=== PATIENT | female | born 1965 | race Caucasian/White ===

== ENCOUNTER → 2020-02-21 11:50 | Outpatient (CLI) | payer OTHER, SELFPAY ==
--- NOTE | 2020-02-21 | DI.RAD.S_ITS ---
PROCEDURE: XR SHOULDER RT MIN 2V INDICATIONS: RIGHT SHOULDER PAIN TECHNIQUE: 3 views of the shoulder were acquired. COMPARISON: None. FINDINGS: Bones: No fractures or dislocations. No suspicious bony lesions. Visualized ribs appear intact. Mild lateral downsloping appearance of the acromion. Soft tissues: No suspicious soft tissue calcifications. IMPRESSION: No fracture or acute abnormality If the patient's pain or other symptoms persist, consider further evaluation with MRI Dictated by: Mehul Valentin M.D. on 02/21/2020 at 14:40 Approved by: Mehul Valentin M.D. on 02/21/2020 at 14:47
== END ==
PROVIDERS: PCP Family Medicine; Referring Provider Family Medicine; Visit Provider Family Medicine
DX: M25.511 Pain in right shoulder (principal)
CPT/HCPCS: 73030

== ENCOUNTER → 2020-05-13 09:07 | Outpatient (CLI) | payer OTHER, SELFPAY ==
[2020-05-13 10:37] LABS: Alanine Aminotransferase 32 IU/L (<35); Albumin 4.6 g/dL (3.5-5.0); Albumin Globulin Ratio 1.8 (1.0-2.8); Alkaline Phosphatase 53 U/L (38-126); Aspartate Aminotransferase 25 IU/L (14-36); BUN Creatinine Ratio 27.8 (6-22); Bilirubin Total 0.7 mg/dL (0.2-1.3); Blood Urea Nitrogen 22 mg/dL (7-17); Carbon Dioxide 27 mmol/L (22-32); Chloride 104 mmol/L (98-107); Estimated Glomerular Filt Rate > 60.0 mL/min (>60); Globulin 2.6 g/dL (1.7-4.1); Glucose 94 mg/dL (70-100); HEMOLYSIS < 15 (0-50); Potassium 4.3 mmol/L (3.4-5.1); Sodium 137 mmol/L (137-145); Total Protein 7.2 g/dL (6.3-8.2)
[2020-05-13 10:54] LABS: Free T4, Direct Thyroxine 0.98 ng/dL (0.78-2.19)
[2020-05-13 11:08] LABS: Thyroid Stimulating Hormone 1.53 uIU/mL (0.47-4.68)
[2020-05-13 11:10] LABS: Testosterone 35.1 ng/dL (5.71-77.0)
[2020-05-17 02:36] LABS: Estrogen 53 pg/mL (.)
== END ==
PROVIDERS: PCP Family Medicine; Referring Provider Family Medicine; Visit Provider Family Medicine
DX: Z00.00 Encounter for general adult medical examination without abnormal findings (principal)
CPT/HCPCS: 36415; 80053; 82672; 84403; 84439; 84443

== ENCOUNTER 2020-06-30 08:18 | Emergency (ER) | payer OTHER, SELFPAY ==
--- NOTE | 2020-06-30 08:27 | DI.RAD.S_ITS ---
PROCEDURE: XR CHEST 1V INDICATIONS: chest pain TECHNIQUE: One view of the chest was acquired. COMPARISON: [facility], CR, XR SHOULDER RT MIN 2V, 02/21/2020, 11:53. FINDINGS: Surgical changes and devices: None. Lungs and pleura: Lungs are clear. No pleural effusions or pneumothorax. Mediastinum: Mediastinal contours appear normal. Heart size is normal. Bones and chest wall: No suspicious bony lesions. Overlying soft tissues appear unremarkable. IMPRESSION: No acute cardiopulmonary abnormality. Dictated by: Manuel Gaona M.D. on 06/30/2020 at 7:48 Approved by: Manuel Gaona M.D. on 06/30/2020 at 7:49
[2020-06-30 08:30] VITALS: BP 171/83; PULSE 86; RESP 14; TEMP 36.6; O2SAT 100; BMI 27.0
--- NOTE | 2020-06-30 08:32 | ED.CHESTPAIN ---
HPI - Chest Pain General Chief Complaint: Chest Pain Stated Complaint: Chest pain, started about 3 days ago Time Seen by Provider: 06/30/20 08:22 Source: patient Mode of arrival: Ambulatory Limitations: no limitations History of Present Illness HPI narrative: Patient is a 55-year-old female with history of hyperlipidemia who presents with the centralized chest discomfort ongoing for the last 3 days. She has states that she notices it more when she is resting trying to lay down and go to sleep. She says if she is keeping busy she does not notice it it does not matter if she is exerting herself or resting she feels like it is fairly constant and nonradiating. She denies any infectious symptoms Duration: constant Onset: during rest and during exertion Pain location: substernal Severity: mild Quality: aching Pain radiation: none Relieving factors: nothing Exacerbating factors: nothing Related Data Home Medications Medication Instructions Recorded Confirmed atorvastatin 20 mg tablet 20 mg PO tab 02/21/20 05/24/20 bupropion HCl 150 mg 24 hr tablet, mg PO 02/21/20 05/24/20 extended release Previous Rx's Medication Instructions Recorded piroxicam 20 mg capsule See Rx Instructions .ROUTE 05/28/20 .COMPLEX #90 cap Allergies Allergy/AdvReac Type Severity Reaction Status Date / Time Iodinated Contrast Media AdvReac Mild passed Verified 06/30/20 08:35 out Review of Systems Review of Systems Narrative: GENERAL: Denies chills, fatigue, malaise, fever, sweats, travel HEENT: Denies sinus pain, ear pain, sore throat, difficulty swallowing, neck pain RESPIRATORY: Denies dyspnea, cough, wheezing, hemoptysis, sputum. CARDIOVASCULAR: See HPI GASTROINTESTINAL: Denies nausea, vomiting, abdominal pain, diarrhea, constipation, melena. : Denies dysuria, frequency, incontinence, hematuria, urinary retention, flank pain. MUSCULOSKELETAL: Denies weakness, joint pain, or bony pain SKIN: No rash, no erythema, no pruritus NEUROLOGIC: Denies weakness, dizziness, headache, numbness, change in speech, confusion PSYCHIATRIC: No concerning psychosocial issues. 12 point review of systems is negative except for those stated above and HPI Patient History Medical History Adhesive capsulitis of right shoulder Otalgia, right ear Seborrheic keratosis Well adult exam Surgical History Anesthesia H/O breast augmentation (~2009) H/O breast augmentation (~1991) History of section (~08/1989) Family History Father History of heart disease Grandfather History of emphysema Grandmother Cancer Grandmother History of heart disease Social History Smoking Status: Never smoker alcohol intake: current (1 drink per night ) substance use type: does not use Smoking Status: Never smoker Exam Initial Vital Signs Initial Vital Signs: Vital Signs Temperature 97.8 F 06/30/20 08:30 Pulse Rate 86 06/30/20 08:30 Respiratory Rate 14 06/30/20 08:30 Blood Pressure 171/83 H 06/30/20 08:30 Pulse Oximetry 100 06/30/20 08:30 GENERAL: Well-appearing, well-nourished and in no acute distress. HEENT: Head atraumatic,EOMI, pupils reactive, face symmetric, moist mucous membranes CARDIOVASCULAR: Regular rate and rhythm without murmurs, rubs or gallops. RESPIRATORY: Breath sounds equal bilaterally, no wheezes rales or rhonchi. ABDOMEN: Soft, nontender. Normoactive bowel sounds all 4 quadrants. No guarding or rebound. EXTREMITIES: Normal range of motion, no clubbing or edema. Neurovascularly intact NEUROLOGICAL: Alert and oriented x4.Normal gait and speech. Cranial nerves II through XII grossly intact. SKIN: Warm, dry, no laceration, no petechiae, no rashes or lesions. Scores HEART Score Heart Score history: Slightly Suspicious Heart Score EKG: Normal Heart Score Age: 45-64 years old Heart Score risk factors: 1-2 risk factors Heart Score troponin: < or = to normal limit Heart Score Total: 2 Course Orders Ordered: ED Orders 06/30/20 08:27 XR chest 1V Stat EKG-12 Lead Stat 06/30/20 08:47 Complete Blood Count AUTO DIFF Stat Comprehensive Metabolic Panel Stat Lipase Stat Partial Thromboplastin Time Stat Prothrombin Time INR Stat Troponin & CK Cardiac Panel Stat Discontinued Medications Aspirin (Aspirin 81 Mg Chew Tab) 324 mg PO NOW ONE Stop: 06/30/20 08:28 Last Admin: 06/30/20 08:35 Dose: 324 mg Documented by: MARKO Pantoprazole Sodium (Pantoprazole 40 Mg Vial) 40 mg IV NOW ONE Stop: 06/30/20 08:52 Last Admin: 06/30/20 08:57 Dose: 40 mg Documented by: MARKO Vital Signs Vital signs: Vital Signs - 8 hr 06/30/20 08:30 06/30/20 10:44 Temperature 97.8 F Pulse Rate 86 78 Respiratory Rate 14 15 Blood Pressure 171/83 H 171/83 H Pulse Oximetry 100 98 MDM - Chest Pain Lab Data Attestation: I reviewed the patient's lab results. Result diagrams: 06/30/20 08:47 06/30/20 08:47 Labs: Lab Results 06/30/20 06/30/20 06/30/20 Range/Units 08:47 08:47 08:47 WBC 4.9 (4.5-11.0) X10^3/uL RBC 4.67 (4.0-5.2) X10^6/uL Hgb 14.2 (12.0-16.0) g/dL Hct 42.3 (36-46) % MCV 90.5 (80-100) fL MCH 30.4 (26-34) PG MCHC 33.6 (30-36) % RDW 13.3 (11.6-14.8) % Plt Count 281 (150-400) X10^3/uL Neut % (Auto) 58.9 (50-75) % Lymph % (Auto) 29.5 (25-40) % Edmonson % (Auto) 8.4 (3-14) % Eos % (Auto) 2.0 (2-4) % Baso % (Auto) 1.2 (0-2) % Neut # (Auto) 2900 (4199-8790) /uL Lymph # (Auto) 1400 (2003-0438) /uL Edmonson # (Auto) 400 (0-900) /uL Eos # (Auto) 100 (0-450) /uL Baso # (Auto) 100 (0-100) /uL PT 11.5 (10.1-12.7) SECONDS INR 1.0 (0.9-1.3) APTT 31 (26.4-36.2) SECONDS Sodium 137 (137-145) mmol/L Potassium 4.0 (3.4-5.1) mmol/L Chloride 105 (98-107) mmol/L Carbon Dioxide 29 (22-32) mmol/L BUN 16 (7-17) mg/dL Creatinine 0.84 (0.52-1.04) mg/dL Estimated GFR > 60.0 (>60) mL/min BUN/Creatinine Ratio 19.0 (6-22) Glucose 99 (70-100) mg/dL Calcium 9.3 (8.4-10.2) mg/dL Total Bilirubin 0.6 (0.2-1.3) mg/dL AST 29 (14-36) IU/L ALT 31 (<35) IU/L Alkaline Phosphatase 55 (38-126) U/L Total Creatine Kinase 69 (30-135) U/L CK-MB (CK-2) TNP CK-MB (CK-2) Rel Index TNP Troponin I < 0.012 (0.01-0.034) ng/mL Total Protein 7.2 (6.3-8.2) g/dL Albumin 4.3 (3.5-5.0) g/dL Globulin 2.9 (1.7-4.1) g/dL Albumin/Globulin Ratio 1.5 (1.0-2.8) Lipase 75 (23-300) U/L Imaging Data Chest x-ray: Radiologist's Impression: PROCEDURE: XR CHEST 1V INDICATIONS: chest pain TECHNIQUE: One view of the chest was acquired. COMPARISON: [facility], CR, XR SHOULDER RT MIN 2V, 02/21/2020, 11:53. FINDINGS: Surgical changes and devices: None. Lungs and pleura: Lungs are clear. No pleural effusions or pneumothorax. Mediastinum: Mediastinal contours appear normal. Heart size is normal. Bones and chest wall: No suspicious bony lesions. Overlying soft tissues appear unremarkable. IMPRESSION: No acute cardiopulmonary abnormality. Dictated by: Manuel Gaona M.D. on 06/30/2020 at 7:48 Approved by: Manuel Gaona M.D. on 06/30/2020 at 7:49 ECG Data Attestation: I personally reviewed and interpreted this ECG as follows: Interpretation: Normal sinus rhythm rate 62 p.r. interval 168 QRS [address] changes or T-wave inversions MDM Narrative Medical decision making narrative: Patient is overall feeling much better. She has had 3 days of chest discomfort low heart risk score. Based on her history and how she does describing it I have low suspicion for cardiac cause. At this time I recommend outpatient follow-up EKG troponin blood work all overall reassuring Discharge Plan Departure Patient Disposition: Home Clinical Impression: Atypical chest pain Instructions: DI for Atypical Chest Pain Activity Restrictions/Additional Instructions: *You have been diagnosed with atypical chest pain *What to do: At this time blood work and EKG are reassuring. However you still may require a cardiac stress test or other further her testing with her primary care provider *Continue to take medications as directed *Follow up with your primary care provider in 2-3 days *Return to ER if you should have increasing or worsening chest discomfort, shortness of breath or any new, worsening or concerning symptoms Prescriptions: No Action piroxicam 20 mg capsule See Rx Instructions .ROUTE .COMPLEX Qty: 90 RF: 1 atorvastatin 20 mg tablet 20 mg PO RF: 0 bupropion HCl 150 mg tablet extended release 24 hr PO RF: 0 Referrals: Raji Gordillo, [Primary Care Provider] -
[2020-06-30] MEDS: ASPIRIN 81 MG CHEW TAB 324 MG PO (08:35)
[2020-06-30 08:56] LABS: Add Manual Diff / Slide Review NO; Basophils Absolute Auto 100 /uL (0-100); Basophils Percent Auto 1.2 % (0-2); Eosinophils Absolute Auto 100 /uL (0-450); Hematocrit 42.3 % (36-46); Hemoglobin 14.2 g/dL (12.0-16.0); Lymphocytes Absolute Auto 1400 /uL (1100-4500); Lymphocytes Percent Auto 29.5 % (25-40); Mean Corpuscular HGB Conc 33.6 % (30-36); Mean Corpuscular Hemoglobin 30.4 PG (26-34); Mean Corpuscular Volume 90.5 fL (80-100); Monocytes Absolute Auto 400 /uL (0-900); Monocytes Percent Auto 8.4 % (3-14); Neutrophils Absolute Auto 2900 /uL (1500-7000); Neutrophils Percent Auto 58.9 % (50-75); Platelet Count 281 X10^3/uL (150-400); Red Blood Cell Count 4.67 X10^6/uL (4.0-5.2); Red Cell Distribution Width 13.3 % (11.6-14.8); White Blood Cell Count 4.9 X10^3/uL (4.5-11.0)
[2020-06-30] MEDS: PANTOPRAZOLE 40 MG VIAL IV (08:57)
[2020-06-30 09:09] LABS: Prothrombin Time 11.5 SECONDS (10.1-12.7)
[2020-06-30 09:12] LABS: PTT Partial Thromboplastin Tim 31 SECONDS (26.4-36.2)
[2020-06-30 09:14] LABS: Alanine Aminotransferase 31 IU/L (<35); Albumin 4.3 g/dL (3.5-5.0); Albumin Globulin Ratio 1.5 (1.0-2.8); Alkaline Phosphatase 55 U/L (38-126); Aspartate Aminotransferase 29 IU/L (14-36); Bilirubin Total 0.6 mg/dL (0.2-1.3); Blood Urea Nitrogen 16 mg/dL (7-17); Calcium 9.3 mg/dL (8.4-10.2); Carbon Dioxide 29 mmol/L (22-32); Chloride 105 mmol/L (98-107); Creatine Kinase 69 U/L (30-135); Estimated Glomerular Filt Rate > 60.0 mL/min (>60); Globulin 2.9 g/dL (1.7-4.1); Glucose 99 mg/dL (70-100); HEMOLYSIS < 15 (0-50); Lipase 75 U/L (23-300); Sodium 137 mmol/L (137-145); Total Protein 7.2 g/dL (6.3-8.2)
[2020-06-30 09:26] LABS: Troponin I < 0.012 ng/mL (0.01-0.034)
[2020-06-30 10:44] VITALS: BP 171/83; PULSE 78; RESP 15; O2SAT 98
== END 2020-06-30 10:45 | disposition home or self-care (01) ==
PROVIDERS: Emergency Provider Emergency Medicine; PCP Family Medicine
DX: R07.89 Other chest pain (principal); E78.5 Hyperlipidemia, unspecified
CPT/HCPCS: 36415; 71045; 80053; 82550; 83690; 84484; 85025; 85610; 85730; 93005; 96374; 99281; 99284; C9113

== ENCOUNTER → 2020-10-09 10:09 | Outpatient (CLI) | payer OTHER, SELFPAY ==
[2020-10-09] MEDS: COVID-19 VACC #1, MRNA(MOD) 100 MCG/0.5 ML VIAL IM (10:20)
== END ==
PROVIDERS: PCP Family Medicine; Visit Provider Internal Medicine
DX: Z23 Encounter for immunization (principal)
CPT/HCPCS: 0011A; 91301

== ENCOUNTER → 2020-11-14 10:01 | Outpatient (CLI) | payer OTHER, SELFPAY ==
[2020-11-14] MEDS: COVID-19 VACC #2, MRNA(MOD) 100 MCG/0.5 ML VIAL IM (10:11)
== END ==
PROVIDERS: PCP Family Medicine; Visit Provider Internal Medicine
DX: Z23 Encounter for immunization (principal)
CPT/HCPCS: 0012A; 91301

== ENCOUNTER → 2020-12-04 07:16 | Outpatient (CLI) | payer OTHER, SELFPAY ==
[2020-12-04 09:11] LABS: Alanine Aminotransferase 21 IU/L (<35); Albumin 4.1 g/dL (3.5-5.0); Albumin Globulin Ratio 1.8 (1.0-2.8); Alkaline Phosphatase 44 U/L (38-126); Aspartate Aminotransferase 27 IU/L (14-36); BUN Creatinine Ratio 18.9 (6-22); Bilirubin Total 0.5 mg/dL (0.2-1.3); Blood Urea Nitrogen 18 mg/dL (7-17); Calcium 9.2 mg/dL (8.4-10.2); Carbon Dioxide 27 mmol/L (22-32); Chloride 106 mmol/L (98-107); Cholesterol 156 mg/dL (140-199); Estimated Glomerular Filt Rate > 60.0 mL/min (>60); Globulin 2.3 g/dL (1.7-4.1); Glucose 89 mg/dL (70-100); HDL Cholesterol 70 mg/dL (40-60); HEMOLYSIS < 15 (0-50); LDL Cholesterol Calculated 76 mg/dL (<100); Sodium 139 mmol/L (137-145); Total Protein 6.4 g/dL (6.3-8.2); Triglycerides 52 mg/dL (35-150)
== END ==
PROVIDERS: PCP Family Medicine; Referring Provider Family Medicine; Visit Provider Family Medicine
DX: Z13.220 Encounter for screening for lipoid disorders (principal); Z13.228 Encounter for screening for other metabolic disorders
CPT/HCPCS: 36415; 80053; 80061

== ENCOUNTER → 2020-12-30 09:58 | Outpatient (CLI) | payer OTHER, SELFPAY ==
--- NOTE | 2020-12-30 | DI.MG.S_ITS ---
BILATERAL DIGITAL SCREENING MAMMOGRAM 3D/2D WITH CAD WITH AUGMENTATION: 12/30/2020 CLINICAL: Routine screening. Comparison is made to exams dated: 07/24/2019 mammogram, 08/22/2018 mammogram, and 06/29/2017 mammogram - outside location. The tissue of both breasts is heterogeneously dense. This may lower the sensitivity of mammography. Current study was also evaluated with a Computer Aided Detection (CAD) system. Bilateral breast implants are stable. No significant masses, calcifications, or other findings are seen in either breast. There has been no significant interval change. IMPRESSION: NEGATIVE There is no mammographic evidence of malignancy. A 1 year screening mammogram is recommended. This exam was interpreted at Station ID: [id number]. NOTE: For mammograms, a report in lay terms will be sent to the patient. Approximately 15% of breast malignancies will not be visualized mammographically. In the management of a palpable breast mass, a negative mammogram must not discourage biopsy of a clinically suspicious lesion. Electronically Signed By: Jesus mi/saranya:12/30/2020 10:39:47 letter sent: Normal Exam ACR BI-RADS Category 1: Negative 3341F
== END ==
PROVIDERS: PCP Family Medicine; Referring Provider Family Medicine; Visit Provider Family Medicine
DX: Z12.31 Encounter for screening mammogram for malignant neoplasm of breast (principal)
CPT/HCPCS: 77063; 77067

== ENCOUNTER → 2021-07-03 07:43 | Outpatient (CLI) | payer OTHER, SELFPAY ==
[2021-07-03 09:48] LABS: Alanine Aminotransferase 24 IU/L (<35); Albumin 4.4 g/dL (3.5-5.0); Albumin Globulin Ratio 1.7 (1.0-2.8); Alkaline Phosphatase 44 U/L (38-126); Aspartate Aminotransferase 27 IU/L (14-36); BUN Creatinine Ratio 16.9 (6-22); Bilirubin Total 0.5 mg/dL (0.2-1.3); Blood Urea Nitrogen 15 mg/dL (7-17); Calcium 8.9 mg/dL (8.4-10.2); Carbon Dioxide 30 mmol/L (22-32); Chloride 106 mmol/L (98-107); Estimated Glomerular Filt Rate > 60.0 mL/min (>60); Globulin 2.6 g/dL (1.7-4.1); Glucose 89 mg/dL (70-100); HEMOLYSIS < 15 (0-50); Potassium 3.9 mmol/L (3.4-5.1); Sodium 138 mmol/L (137-145)
[2021-07-03 10:19] LABS: TSH w/ Reflex to FT4 1.98 uIU/mL (0.47-4.68)
== END ==
PROVIDERS: PCP Family Medicine; Referring Provider Family Medicine; Visit Provider Family Medicine
DX: Z00.00 Encounter for general adult medical examination without abnormal findings (principal)
CPT/HCPCS: 36415; 80053; 84443

== ENCOUNTER → 2021-12-02 11:07 | Outpatient (CLI) | payer OTHER, SELFPAY ==
--- NOTE | 2021-12-02 | DI.RAD.S_ITS ---
PROCEDURE: XR LUMBAR SPINE 2-3V INDICATIONS: LOW BACK FELICIA TECHNIQUE: 3 views of the lumbar spine were acquired. COMPARISON: None. FINDINGS: Bones: 5 [id number] vertebrae are present. There is trace retrolisthesis of L2 on L3, L5 on S1 as well as grade 1 retrolisthesis of L3 on L4 measuring 5-6 mm. Mild foraminal narrowing is noted at L5-S1. No vertebral body compression fractures. No suspicious bony lesions. Soft tissues: Overlying bowel gas pattern is normal. No suspicious soft tissue calcifications. IMPRESSION: Degenerative changes most notable at L5-S1. Dictated by: Miranda Vogt M.D. on 12/02/2021 at 15:25 Approved by: Miranda Vogt M.D. on 12/02/2021 at 15:32
== END ==
PROVIDERS: PCP Family Medicine; Referring Provider Chiropractor; Visit Provider Chiropractor
DX: M99.03 Segmental and somatic dysfunction of lumbar region (principal); M54.51 Vertebrogenic low back pain
CPT/HCPCS: 72100

== ENCOUNTER → 2022-01-01 08:13 | Outpatient (CLI) | payer OTHER, SELFPAY ==
--- NOTE | 2022-01-01 | DI.MG.S_ITS ---
BILATERAL DIGITAL SCREENING MAMMOGRAM 3D/2D WITH CAD WITH AUGMENTATION: 01/01/2022 CLINICAL: Routine screening. Comparison is made to exams dated: 12/30/2020 mammogram - [facility], 07/24/2019 mammogram, and 08/22/2018 mammogram - outside location. The tissue of both breasts is heterogeneously dense. This may lower the sensitivity of mammography. Current study was also evaluated with a Computer Aided Detection (CAD) system. Bilateral breast implants are stable. No significant masses, calcifications, or other findings are seen in either breast. There has been no significant interval change. IMPRESSION: NEGATIVE There is no mammographic evidence of malignancy. A 1 year screening mammogram is recommended. This exam was interpreted at Station ID: [id number]. NOTE: For mammograms, a report in lay terms will be sent to the patient. Approximately 15% of breast malignancies will not be visualized mammographically. In the management of a palpable breast mass, a negative mammogram must not discourage biopsy of a clinically suspicious lesion. Electronically Signed By: Eric hemphill/saranya:01/01/2022 11:00:28 letter sent: Normal Exam ACR BI-RADS Category 1: Negative 3341F
== END ==
PROVIDERS: PCP Family Medicine; Referring Provider Family Medicine; Visit Provider Family Medicine
DX: Z12.31 Encounter for screening mammogram for malignant neoplasm of breast (principal)
CPT/HCPCS: 77063; 77067

== ENCOUNTER → 2022-03-04 12:07 | Outpatient (CLI) | payer OTHER, SELFPAY ==
--- NOTE | 2022-03-04 12:09 | DI.US.S_ITS ---
PROCEDURE: US PELVIC COMPLETE INDICATIONS: PMB TECHNIQUE: Real-time scanning was performed of the pelvic organs, with image documentation. Additional endovaginal scanning was necessary due to incomplete visualization of the adnexal and endometrial structures by transabdominal scanning. COMPARISON: None. FINDINGS: Uterus: The uterus is anteverted measuring 9.8 x 5.2 x 7.8 centimeters. The endometrium is thickened measuring 16 millimeters. Multiple fibroids, the largest in the right intramural region measuring up to 3.9 centimeters. No submucosal lesion identified. Cervix is within normal limits. Ovaries: Right ovary is not well seen. Left ovary measures 2.5 x 1.3 x 0.8 centimeters. Other: No pathologic free abdominal or pelvic fluid. IMPRESSION: Endometrial thickening, sampling is recommended in the setting of postmenopausal bleeding. Multiple fibroids. The largest measures up to 3.9 centimeters in the right intramural region. We strive to produce accurate, complete, and clear reports of imaging services. To assist us in improving patient care, this report was composed using standard report templates and voice recognition software. Therefore, it may contain abnormal punctuation, insertions and/or omissions. Occasional wrong-word or sound-alike substitutions may occur. Though we review the report and make efforts to correct it, we do recommend that the report be read carefully in proper context to recognize any text inaccuracies. Dictated by: Porter Hinkle M.D. on 03/04/2022 at 14:28 Approved by: Porter Hinkle M.D. on 03/04/2022 at 14:29
== END ==
PROVIDERS: PCP Family Medicine; Referring Provider Nurse Practitioner; Visit Provider Nurse Practitioner
DX: N95.0 Postmenopausal bleeding (principal); D25.1 Intramural leiomyoma of uterus; R93.89 Abnormal findings on diagnostic imaging of other specified body structures
CPT/HCPCS: 76830; 76856

== ENCOUNTER → 2022-07-16 10:28 | Outpatient (CLI) | payer OTHER, SELFPAY ==
[2022-07-16 11:44] LABS: Add Manual Diff / Slide Review NO; Basophils Absolute Auto 0 /uL (0-100); Basophils Percent Auto 0.9 % (0-2); Eosinophils Absolute Auto 0 /uL (0-450); Eosinophils Percent Auto 0.7 % (2-4); Hematocrit 44.3 % (36-46); Hemoglobin 14.9 g/dL (12.0-16.0); Lymphocytes Absolute Auto 1200 /uL (1100-4500); Lymphocytes Percent Auto 23.4 % (25-40); Mean Corpuscular HGB Conc 33.7 % (30-36); Mean Corpuscular Hemoglobin 30.4 PG (26-34); Mean Corpuscular Volume 90.2 fL (80-100); Monocytes Absolute Auto 400 /uL (0-900); Neutrophils Absolute Auto 3500 /uL (1500-7000); Platelet Count 276 X10^3/uL (150-400); Red Blood Cell Count 4.91 X10^6/uL (4.0-5.2); Red Cell Distribution Width 13.2 % (11.6-14.8); White Blood Cell Count 5.2 X10^3/uL (4.5-11.0)
[2022-07-16 12:23] LABS: Alanine Aminotransferase 24 IU/L (<35); Albumin 4.8 g/dL (3.5-5.0); Albumin Globulin Ratio 1.5 (1.0-2.8); Alkaline Phosphatase 46 U/L (38-126); Aspartate Aminotransferase 24 IU/L (14-36); BUN Creatinine Ratio 17.2 (6-22); Bilirubin Total 0.7 mg/dL (0.2-1.3); Blood Urea Nitrogen 15 mg/dL (7-17); Calcium 9.1 mg/dL (8.4-10.2); Carbon Dioxide 27 mmol/L (22-32); Chloride 100 mmol/L (98-107); Cholesterol 211 mg/dL (140-199); Estimated Glomerular Filt Rate > 60 mL/min (>60); Globulin 3.1 g/dL (1.7-4.1); Glucose 80 mg/dL (70-100); HDL Cholesterol 73 mg/dL (40-60); HEMOLYSIS < 15 (0-50); LDL Cholesterol Calculated 123 mg/dL (<100); Potassium 4.2 mmol/L (3.4-5.1); Sodium 136 mmol/L (137-145); Total Protein 7.9 g/dL (6.3-8.2); Triglycerides 73 mg/dL (35-150)
[2022-07-16 12:59] LABS: TSH w/ Reflex to FT4 1.33 uIU/mL (0.47-4.68)
== END ==
PROVIDERS: PCP Family Medicine; Referring Provider Family Medicine; Visit Provider Family Medicine
DX: Z00.00 Encounter for general adult medical examination without abnormal findings (principal); N85.00 Endometrial hyperplasia, unspecified; E78.5 Hyperlipidemia, unspecified
CPT/HCPCS: 36415; 80053; 80061; 84443; 85025

== ENCOUNTER 2022-08-31 06:38 | Day surgery (SDC) | payer OTHER, SELFPAY ==
[2022-08-28 11:06] VITALS: BMI 26.7
[2022-08-31] VITALS (13 sets, daily range): BP systolic 109–143; BP diastolic 63–79; PULSE 62–77; RESP 10–16; TEMP 36.2–37; O2SAT 95–198; BMI 26.7
--- NOTE | 2022-08-31 | PATH_ITS ---
[facility] Accession Number: [id number] No. of containers..01 Tissue . 01 Material submitted: . endometrium - ENDOMETRIAL CURETTINGS . 01 Diagnosis: Endometrial Curettings: Predominantly blood clots with small fragments/strips of weakly proliferative endometrium. No significant cytologic atypia and no malignancy. MRV 09/07/2022 1216 Local . 01 Electronically signed: . Selene Nix MD, Pathologist NPI- [id number] . 01 Gross description: . ENDOMETRIAL CURETTINGS: Received in formalin are minute fragments of mucoid and hemorrhagic material measuring 0.4 x 0.4 x 0.2 cm in aggregate. Submitted in toto in 1 cassette. /DIANE 09/01/2022 1906 Local . 01 Pathologist provided ICD-10: N95.0 . 01 CPT . 597651 Specimen Comment: A courtesy copy of this report has been sent to [phone] Performed at: 01 [facility] Cytology [address] [place] [address] [address], [place], [place] [id number] MD Jesus Curry MD Phone: [phone]
[2022-08-31] MEDS: LACTATED RINGERS 1,000 ML 100 ML IV (07:32)
--- NOTE | 2022-08-31 07:42 | PM.HP.1 ---
History of Present Illness History of Present Illness Date Patient Seen: 08/31/22 Time Patient Seen: 07:42 Chief complaint: DCC Narrative: Patient is a 57-year-old 1 para 1002 who presents for a D&C hysteroscopy due to persistent postmenopausal bleeding and a thickened endometrial lining. Patient History Medical History (Updated 08/04/22 @ 09:46 by Gretchen Agudelo MD) Adhesive capsulitis of right shoulder Depression Endometrial hyperplasia GERD (gastroesophageal reflux disease) Hyperlipidemia Nail fungus Osteoarthritis Otalgia, right ear Seborrheic keratosis Surgical History Anesthesia H/O breast augmentation (~2009) H/O breast augmentation (~1991) History of section (~08/1989) Family & Social History Family History Father History of heart disease Grandfather History of emphysema Grandmother Cancer Grandmother History of heart disease Son Arrhythmia Social History: household members spouse Tobacco & Substance use: Smoking Status Never smoker alcohol intake current alcohol intake frequency 0-2 drinks per day Substance Use Type does not use Meds Home Medications and Allergies Home Medications Medication Instructions Recorded Confirmed Type bupropion HCl 150 mg 24 hr tablet, 150 mg PO QAM #90 tabs 12/04/21 08/04/22 Rx extended release celecoxib 200 mg capsule See Rx Instructions .Route 04/01/22 08/04/22 Rx .COMPLEX #90 caps atorvastatin 20 mg tablet 20 mg PO DAILY 07/16/22 08/31/22 History progesterone micronized 200 mg 200 mg PO BEDTIME 07/16/22 08/31/22 History capsule Estrogen pellet 12.5mg 100 ml IM 08/05/22 History Testosterone pellet 200mg implant continuous sub-Q infusn 08/05/22 History (via wearable injectr) Allergies Allergy/AdvReac Type Severity Reaction Status Date / Time Iodinated Contrast Media AdvReac Mild passed Verified 08/31/22 07:26 out Exam Narrative Exam Narrative: HEENT: No thyromegaly, no anterior cervical or supraclavicular lymphadenopathy. Lungs:Clear to auscultation bilaterally, no wheezes. Cardiovascular: Regular rate and rhythm, no murmurs, rubs, or gallops. Abdomen: Well-healed Pfannenstiel scars. No hepatosplenomegaly. No masses palpable. External genitalia: Normal Vagina: Normal Cervix: Normal Bimanual exam: 7 Week size anteverted uterus. Mobile. No adnexal masses or tenderness Extremities: No edema Assessment & Plan Assessment & Plan narrative: Assessment: 57-year-old 1 para 1002 with persistent postmenopausal bleeding and endometrial hyperplasia Plan: D&C hysteroscopy The risks, benefits, and alternatives to the procedure were explained to the patient. The risks including bleeding, infection, and uterine perforation. She understands these risks and agrees to proceed. A full par Q was held and consent form was signed. Time Spent With Patient Time with patient: less than 30 minutes Critical Care time: I spent a total of [] minutes of critical care time on this patient's care today; this time is exclusive of procedural time.
--- NOTE | 2022-08-31 07:44 | PM.PREOP ---
Pre-operative Note COVID-19 Criteria for continued procedure: Non-surgical alternatives not available or appropriate per current SOC Interval Note History & Physical reviewed/Exam performed by Physician: Yes Changes to H&P: No H&P completed within 30 days and has changed as indicated here:: 08/31/22
--- NOTE | 2022-08-31 08:17 | SUR.OPER ---
Lithotomy on padded OR bed, head on pillow, arms secured on padded arm boards at <90 degrees abduction. Legs secured in padded yellow fins stirrups.
--- NOTE | 2022-08-31 08:55 | PM.GYNOP.1 ---
Operative Date/Time/Diagnoses Date of procedure: 08/31/22 Time of procedure: 08:55 Pre-op diagnosis: Persistent postmenopausal bleeding Endometrial hyperplasia Post-op diagnosis: same Procedure & Clinicians Procedure: Procedures Operation Date: 08/31/22 07:45 Actual Procedure Side Surgeon p D&C Hysteroscopy Not Applicable Gretchen Agudelo MD Indications: Persistent postmenopausal bleeding Endometrial hyperplasia Surgeon: Gretchen Agudelo Anesthesia Type: General (LMA) Operative Notes Findings: 7 week size anteverted uterus Both fallopian tube ostia observed Thickened endometrial lining on the anterior wall of the uterus Closure Type: not applicable Specimen(s): endometrial curettings Estimated blood loss (mL): 15 Blood products transfused: none Procedure in detail: After informed consent was obtained, the patient was taken to the operating room where she was placed in the dorsal supine position. After adequate LMA general anesthesia was achieved, she was placed in the dorsal lithotomy position, and prepped and draped in the usual sterile fashion. A time-out was performed. A bivalve speculum was placed into the vagina and the anterior lip of the cervix was grasped with a single-tooth tenaculum. The cervical os was sequentially dilated to the # 8 Hegar dilator. The hysteroscope passed easily into the endometrial cavity. Both fallopian tube ostia were observed. There were no polyps or fibroids. The endometrium on the anterior wall of the uterus was thickened. The hysteroscope was removed from the uterus. Sharp curettage was performed yielding a large amount of endometrial curettings. The instruments were removed from the uterus. The single-tooth tenaculum was removed from the anterior lip of the cervix. The bivalve speculum was removed from the vagina. Sponge, lap, and instrument counts were correct x2. The patient tolerated the procedure well, and was taken to PACU in stable condition. Complications: none Post-operative Condition: stable Disposition: PACU Plan for aftercare: Home after recovery
[2022-08-31] MEDS: HYDROMORPHONE 2 MG INJ IV ×2 (09:00→09:07)
[2022-08-31] MEDS: OXYCODONE IR 5 MG TABLET PO ×2 (09:01→09:54)
== END 2022-08-31 10:08 | disposition home or self-care (01) ==
PROVIDERS: PCP Family Medicine; Referring Provider Obstetrics & Gynecology; Visit Provider Obstetrics & Gynecology
PROC: 0UDB8ZZ Extraction of Endometrium, Via Natural or Artificial Opening Endoscopic (ICD-10-PCS; CPT 58558; principal; 2022-08-31 07:45)
DX: N95.0 Postmenopausal bleeding (principal); N85.00 Endometrial hyperplasia, unspecified
CPT/HCPCS: 58558; J1100; J1170; J1885; J2250; J2405; J2704; J3010

== ENCOUNTER → 2022-09-15 08:57 | Outpatient (CLI) | payer OTHER, SELFPAY ==
[2022-09-15 11:01] LABS: Follicle Stimulating Hormone 18.2 mIU/mL
== END ==
PROVIDERS: PCP Family Medicine; Referring Provider Obstetrics & Gynecology; Visit Provider Obstetrics & Gynecology
DX: N95.0 Postmenopausal bleeding (principal)
CPT/HCPCS: 36415; 83001

== ENCOUNTER → 2023-01-02 10:11 | Outpatient (CLI) | payer OTHER, SELFPAY ==
--- NOTE | 2023-01-02 | DI.MG.S_ITS ---
BILATERAL DIGITAL SCREENING MAMMOGRAM 3D/2D WITH CAD WITH AUGMENTATION: 01/02/2023 CLINICAL: Patient presents for routine screening. S/P bilateral augmentation. Comparison is made to exams dated: 01/01/2022 mammogram, 12/30/2020 mammogram - [facility], and 07/24/2019 mammogram - outside location. Both breasts are heterogeneously dense, which may obscure small masses (category c / 51-75% glandular tissue). Current study was also evaluated with a Computer Aided Detection (CAD) system. Bilateral breast implants are stable. No significant masses, calcifications, or other findings are seen in either breast. There has been no significant interval change. IMPRESSION: NEGATIVE There is no mammographic evidence of malignancy. A 1 year screening mammogram is recommended. Based on the Tyrer Cuzick model (a risk assessment model) the patient's lifetime risk is 11.1% and her 10 year risk is 4.3%. According to the ACR, ACS, and NCCN guidelines, an annual breast MRI exam along with mammogram is recommended if the patient's lifetime risk is 20% or greater. This exam was interpreted at Station ID: [id number]. NOTE: For mammograms, a report in lay terms will be sent to the patient. Approximately 15% of breast malignancies will not be visualized mammographically. In the management of a palpable breast mass, a negative mammogram must not discourage biopsy of a clinically suspicious lesion. Electronically Signed By: Kaz vazquez/saranya:01/04/2023 07:42:35 letter sent: Normal Exam ACR BI-RADS Category 1: Negative [id number]
== END ==
PROVIDERS: PCP Family Medicine; Referring Provider Family Medicine; Visit Provider Family Medicine
DX: Z12.31 Encounter for screening mammogram for malignant neoplasm of breast (principal); Z98.82 Breast implant status
CPT/HCPCS: 77063; 77067

== ENCOUNTER → 2023-03-01 12:32 | Outpatient (CLI) | payer OTHER, SELFPAY | PROVIDERS: PCP Family Medicine; Visit Provider Registered Nurse | DX: N89.8 Other specified noninflammatory disorders of vagina (principal) | CPT/HCPCS: 87077; 87086; 87186; 87210 ==

== ENCOUNTER → 2023-04-15 08:07 | Outpatient (CLI) | payer OTHER, SELFPAY ==
[2023-04-15 09:08] LABS: Alanine Aminotransferase 23 IU/L (<35); Albumin 4.3 g/dL (3.5-5.0); Albumin Globulin Ratio 1.5 (1.0-2.8); Alkaline Phosphatase 51 U/L (38-126); Aspartate Aminotransferase 21 IU/L (14-36); Bilirubin Total 0.8 mg/dL (0.2-1.3); Blood Urea Nitrogen 12 mg/dL (7-17); Calcium 9.7 mg/dL (8.4-10.2); Carbon Dioxide 27 mmol/L (22-32); Chloride 103 mmol/L (98-107); Cholesterol 176 mg/dL (140-199); Estimated Glomerular Filt Rate 59 mL/min (>60); Globulin 2.8 g/dL (1.7-4.1); Glucose 91 mg/dL (70-100); HDL Cholesterol 58 mg/dL (40-60); HEMOLYSIS < 15 (0-50); LDL Cholesterol Calculated 100 mg/dL (<100); Potassium 4.4 mmol/L (3.4-5.1); Sodium 138 mmol/L (137-145); Total Protein 7.1 g/dL (6.3-8.2); Triglycerides 89 mg/dL (35-150)
== END ==
PROVIDERS: PCP Family Medicine; Referring Provider Family Medicine; Visit Provider Family Medicine
DX: E78.2 Mixed hyperlipidemia (principal); F34.1 Dysthymic disorder
CPT/HCPCS: 36415; 80053; 80061

== ENCOUNTER 2023-09-16 08:15 | Outpatient (RCR) | payer OTHER, SELFPAY ==
--- NOTE | 2023-09-07 16:00 | PT.OPPOC ---
Physical, Occupational & Speech Therapy At [facility] Current Diagnoses Pain in right shoulder (09/07/23) Adhesive capsulitis of right shoulder (09/07/23) Visit Care Team Role Provider Type Raji Gordillo DO Attending Provider Physician Family Provider Primary Care Provider Referring Provider Specialty: Family Practice Address: [address] [place] [address] Email: [email or web address] Plan Of Care PT-OP-T Assessment and Plan Start: 09/06/23 17:16 Freq: Status: Active Protocol: Document 09/07/23 08:15 SAK (Rec: 09/07/23 09:01 SAK [id number]) Physical Therapy Assessment Rehab Potential Rehabilitation Potential Good Evaluation Complexity Number of Personal Factors/Comorbidities 1-2 Number of Body Systems Impaired 3 Clinical Presentation at Evaluation Evolving Goals Three Impairment weakness and lack of full ROM right shoulder Impairment limits ability to reach overhead and behind back Short Term Goal (STG) patient to be instructed in HEP for ROM and strengthening right shoulder STG Duration 10/06/23 Jail Goal (LTG) Patient to be independnet and compliant with HEP and demonstrate improvement in ROM to WNL allowing her to reach fully overhead and behind her back without pinching pain in right shoulder LTG Duration 11/06/23 One Impairment Quickdash disability index score Impairment 27% Short Term Goal (STG) Decrease Quickdash score to no greater than 17% as measure of improved right shoulder function STG Duration 10/06/23 Jail Goal (LTG) Decrease Quickdash score to no greater than 7% as measure of improved right shoulder function Two Impairment pain right shoulder Impairment pain as high as 7/10 especially with reaching overhead and behind her back Short Term Goal (STG) Decrease pain by at least 50% with all usual activities STG Duration 10/06/23 Jail Goal (LTG) Decrease pain by at least 75% as with all usual activities LTG Duration 10/22/23 Assessment Summary Assessment Patient presents to PT with pain and limited ROM dominant right shoulder, with diagnosis of adhesive capsulitis. Patient reports 2 years ago had pain and limited motion, received injection and improved without any other intervention. Started to again experience pain and reduced motion back in April 2023, had injection and has had improvement, but still lacks full motion, has some persistent pain, and wants to be able to prevent issues with her shoulder in the future. Evaluation reveals lack of full range all shoulder motions with pinching pain lateral shoulder, decreased accessory motions left GH joint, decreased thoracic mobility, and decreased posterior chain strength. Feel she would benefit from PT to help her achieve full active motion of her right shoulder, and decrease muscle tension and pain. She is highly motivated. POC was discussed and she is in agreement. Physical Therapy Plan Frequency and Duration Duration of treatment (weeks) 8 Plan of Care Start Date 09/07/23 Plan of Care End Date 11/06/23 Therapeutic Interventions Therapeutic Interventions Home Exercise Program,Joint Mobilizations,Manual Therapy, Patient/Caregiver Education, Self-Care/Home Management,Soft Tissue Mobilization,Taping, Therapeutic Activities, Therapeutic Exercises Modalities Cold Pack/Ice Massage,Electric Stimulation,Hot Packs, Iontophoresis,Ultrasound Next Visit Focus/Plan Next Note Type Treatment Note Next Visit Plan Review HEP and response. Shoulder and upper thoracic mobility ex, GH joint mobilization, postural retraining for improved right shoulder function. Plan of Care Dates Plan of Care Start Date 09/07/23 Plan of Care End Date 11/06/23 Electronically Signed by: Mally Browne, PT 09/08/23 1007 If you are in agreement with this Plan of Care, please return a signed and dated copy. I have reviewed this Plan of Care and certify that the skilled therapy services above are required to meet the patient?s needs. Physician Signature Date Printed Name and Credentials Clinical Instructor Signature Printed Name and Credentials
--- NOTE | 2023-09-07 16:00 | PT.OIE ---
Current Diagnoses Pain in right shoulder (09/07/23) Adhesive capsulitis of right shoulder (09/07/23) Past Medical History (Last Reviewed 07/20/23 @ 18:08 by Raji Gordillo DO) Adhesive capsulitis of right shoulder Depression Endometrial hyperplasia GERD (gastroesophageal reflux disease) Hyperlipidemia Nail fungus Osteoarthritis Otalgia, right ear Renal insufficiency Seborrheic keratosis Past Surgical History (Last Reviewed 07/20/23 @ 18:08 by Raji Gordillo DO) Anesthesia H/O breast augmentation (~2009) H/O breast augmentation (~1991) History of section (~08/1989) Visit Care Team Role Provider Type Raji Gordillo DO Attending Provider Physician Family Provider Primary Care Provider Referring Provider Specialty: [facility] Address: [address] [place] [address], [facility] Email: [email or web address] Physical Therapy Initial Evaluation PT-OP-A Visit Information Start: 09/06/23 17:16 Freq: Status: Active Protocol: Document 09/07/23 08:15 SAK (Rec: 09/07/23 09:01 SAK [id number]) Out-Patient Physical Therapy Visit Information Visit Information Visit Type Initial Evaluation Visit Start Time 08:15 Visit Stop Time 08:59 Visit Number 1 Evaluation Information Evaluation Date 09/07/23 PT-OP-B Current Condition Start: 09/06/23 17:16 Freq: Status: Active Protocol: Document 09/07/23 08:15 SAK (Rec: 09/07/23 09:01 SAK [id number]) Current Condition History of Current Condition Onset Date April 2023 Current Complaints right shoulder pain and limited function History of Current Condition History right shoulder pain and dysfunction with history 2 cortisone shots; first 2 years ago, second around with good relief until they wear off. Also has popping sensation in shoulder which persists despite decrease in pain. When pain bad can't reach overhead, reach, sleep. Now reports 90% better but continues to pop and is concerned about what happens when shot wears off again. Denies numbness or tingling. Is right handed. No history of trauma. Prior Treatments and Tests cortisone shot right shoulder around 2022. Prior cortisone shot as well. x-rays Treatment Goals Patient/Caregiver Goals decrease pain and return to prior level of function Prior Functional Status Baseline Function- ADL's Independent Baseline Function- Mobility Independent Baseline Function- Work/School no limitations Baseline Function- Recreation/Hobbies walks for exercise PT-OP-C Subjective Start: 09/06/23 17:16 Freq: Status: Active Protocol: Document 09/07/23 08:15 SAK (Rec: 09/07/23 09:01 SAK [id number]) Patient Questionnaires Quick Dash- Upper Extremity Quick Dash UE Score 27% OP-PT Pain Assessment Pain Assessment Grid Paper Pain Assessment Grid Completed Yes Location right shoulder Pain Location Details anterior and lateral shoulder Intensity 7 Description Aching,Acute,Pressure,With Movement Frequency Frequent Comments Pain Comments cortisone injection decreased pain significantly but persists PT-OP-F Manual Assessment Start: 09/06/23 17:16 Freq: Status: Active Protocol: Document 09/07/23 08:15 SAK (Rec: 09/08/23 10:05 SAK [id number]) Manual Assessments Joint Mobility Assessment Joint Mobility Assessment decreased posterior and inferior glide GH joint right PT-OP-H Neuro Start: 09/06/23 17:16 Freq: Status: Active Protocol: Document 09/07/23 08:15 SAK (Rec: 09/08/23 10:05 SAK [id number]) Sensation Evaluation Gross Sensation Gross Sensation WNL PT-OP-J Posture/Palpation/Skin Start: 09/06/23 17:16 Freq: Status: Active Protocol: Document 09/07/23 08:15 SAK (Rec: 09/08/23 10:05 SAK [id number]) Posture Evaluation Position Sitting Head/C-Spine Posture Forward Head T-Spine Posture Increased Kyphosis Shoulder Posture (L) Rounded,(R) Rounded Scapula Posture (R) Protracted Arm Posture (L) Internally Rotated,(R) Internally Rotated Palpation Assessment Location right upper trap Palpation Findings Soft Tissue Tightness, Tenderness RC insertion Palpation Details mild tenderness deltoid Palpation Location right Palpation Findings Soft Tissue Tightness, Tenderness Palpation Details tenderness at insertion PT-OP-K Range of Motion Start: 09/06/23 17:16 Freq: Status: Active Protocol: Document 09/07/23 08:15 SAK (Rec: 09/07/23 09:01 SAK [id number]) Shoulder Goniometric Range of Motion Shoulder Right Active Flexion 155 Extension 25 Abduction 155 Horizontal Abduction 80 Horizontal Adduction 25 External Rotation at 45 degrees 65 Abduction Internal Rotation Behind Back (text) L2 Left Active Shoulder ROM WFL Yes Internal Rotation Behind Back (text) T2 Shoulder ROM Limitations Shoulder ROM Limitations Soft Tissue Tightness,Muscle Weakness,Pain Elbow/Forearm Range of Motion Elbow/Forearm tee Elbow/Forearm ROM WFL Yes PT-OP-L Special Tests Start: 09/06/23 17:16 Freq: Status: Active Protocol: Document 09/07/23 08:15 SAK (Rec: 09/08/23 10:05 [facility] [id number]) Special Tests Shoulder Special Tests Elevation Impingement Test Results + drop arm Test Results - PT-OP-M Strength Start: 09/06/23 17:16 Freq: Status: Active Protocol: Document 09/07/23 08:15 SAK (Rec: 09/08/23 10:05 [facility] [id number]) Shoulder Strength Shoulder Manual Muscle Testing Right Flexion 4 Good Extension 4 Good Abduction (C5) 4 Good External Rotation 4 Good Internal Rotation 4 Good Horizontal Abduction 4- Good- Horizontal Adduction 4 Good Left Flexion 5 Normal Extension 5 Normal Abduction (C5) 5 Normal External Rotation 4+ Good+ Internal Rotation 4+ Good+ Horizontal Abduction 4+ Good+ Horizontal Adduction 4+ Good+ Elbow/Forearm Strength Elbow and Forearm Manual Muscle Testing tee Flexion (C6) 5 Normal Extension (C7) 5 Normal PT-OP-Q Treatments Start: 09/06/23 17:16 Freq: Status: Active Protocol: Document 09/07/23 08:15 SAK (Rec: 09/08/23 10:06 [facility] [id number]) Self-Care/Home Management Treatment Education Patient Education Home Exercise Program,Joint Protection,Posture Other Education issued written HEP PT-OP-R Modalities Start: 09/06/23 17:16 Freq: Status: Active Protocol: Document 09/07/23 08:15 SAK (Rec: 09/08/23 10:06 [facility] [id number]) Hot Pack/Cold Pack Treatment ice pack Location right shoulder Patient Position Hooklying Patient Tolerance Good PT-OP-T Assessment and Plan Start: 09/06/23 17:16 Freq: Status: Active Protocol: Document 09/07/23 08:15 SAK (Rec: 09/07/23 09:01 [facility] [id number]) Physical Therapy Assessment Rehab Potential Rehabilitation Potential Good Evaluation Complexity Number of Personal Factors/Comorbidities 1-2 Number of Body Systems Impaired 3 Clinical Presentation at Evaluation Evolving Goals Three Impairment weakness and lack of full ROM right shoulder Impairment limits ability to reach overhead and behind back Short Term Goal (STG) patient to be instructed in HEP for ROM and strengthening right shoulder STG Duration 10/06/23 [facility] Goal (LTG) Patient to be independnet and compliant with HEP and demonstrate improvement in ROM to WNL allowing her to reach fully overhead and behind her back without pinching pain in right shoulder LTG Duration 11/06/23 One Impairment Quickdash disability index score Impairment 27% Short Term Goal (STG) Decrease Quickdash score to no greater than 17% as measure of improved right shoulder function STG Duration 10/06/23 Bus Boy Goal (LTG) Decrease Quickdash score to no greater than 7% as measure of improved right shoulder function Two Impairment pain right shoulder Impairment pain as high as 7/10 especially with reaching overhead and behind her back Short Term Goal (STG) Decrease pain by at least 50% with all usual activities STG Duration 10/06/23 Bus Boy Goal (LTG) Decrease pain by at least 75% as with all usual activities LTG Duration 10/22/23 Assessment Summary Assessment Patient presents to PT with pain and limited ROM dominant right shoulder, with diagnosis of adhesive capsulitis. Patient reports 2 years ago had pain and limited motion, received injection and improved without any other intervention. Started to again experience pain and reduced motion back in April 2023, had injection and has had improvement, but still lacks full motion, has some persistent pain, and wants to be able to prevent issues with her shoulder in the future. Evaluation reveals lack of full range all shoulder motions with pinching pain lateral shoulder, decreased accessory motions left GH joint, decreased thoracic mobility, and decreased posterior chain strength. Feel she would benefit from PT to help her achieve full active motion of her right shoulder, and decrease muscle tension and pain. She is highly motivated. POC was discussed and she is in agreement. Physical Therapy Plan Frequency and Duration Duration of treatment (weeks) 8 Plan of Care Start Date 09/07/23 Plan of Care End Date 11/06/23 Therapeutic Interventions Therapeutic Interventions Home Exercise Program,Joint Mobilizations,Manual Therapy, Patient/Caregiver Education, Self-Care/Home Management,Soft Tissue Mobilization,Taping, Therapeutic Activities, Therapeutic Exercises Modalities Cold Pack/Ice Massage,Electric Stimulation,Hot Packs, Iontophoresis,Ultrasound Next Visit Focus/Plan Next Note Type Treatment Note Next Visit Plan Review HEP and response. Shoulder and upper thoracic mobility ex, GH joint mobilization, postural retraining for improved right shoulder function.
--- NOTE | 2023-09-09 09:18 | PT.OTN ---
Current Diagnoses Pain in right shoulder (09/09/23) Adhesive capsulitis of right shoulder (09/09/23) Physical Therapy Treatment Note PT-OP-A Visit Information Start: 09/06/23 17:16 Freq: Status: Active Protocol: Document 09/09/23 08:12 SAK (Rec: 09/09/23 09:02 SAK [id number]) Out-Patient Physical Therapy Visit Information Visit Information Visit Type Treatment Note Visit Start Time 08:15 Visit Stop Time 09:00 Visit Number 2 Evaluation Information Evaluation Date 09/07/23 PT-OP-B Current Condition Start: 09/06/23 17:16 Freq: Status: Active Protocol: Document 09/09/23 08:12 SAK (Rec: 09/09/23 09:02 SAK [id number]) Current Condition History of Current Condition Onset Date April 2023 Current Complaints right shoulder pain and limited function History of Current Condition History right shoulder pain and dysfunction with history 2 cortisone shots; first 2 years ago, second around with good relief until they wear off. Also has popping sensation in shoulder which persists despite decrease in pain. When pain bad can't reach overhead, reach, sleep. Now reports 90% better but continues to pop and is concerned about what happens when shot wears off again. Denies numbness or tingling. Is right handed. No history of trauma. Prior Treatments and Tests cortisone shot right shoulder around 2022. Prior cortisone shot as well. x-rays Treatment Goals Patient/Caregiver Goals decrease pain and return to prior level of function PT-OP-C Subjective Start: 09/06/23 17:16 Freq: Status: Active Protocol: Document 09/09/23 08:12 SAK (Rec: 09/09/23 09:02 SAK [id number]) OP-PT Subjective Patient Comments Patient Comments No new c/o, did the exercises. PT-OP-F Manual Assessment Start: 09/06/23 17:16 Freq: Status: Active Protocol: Document 09/07/23 08:15 SAK (Rec: 09/08/23 10:05 SAK [id number]) Manual Assessments Joint Mobility Assessment Joint Mobility Assessment decreased posterior and inferior glide GH joint right PT-OP-H Neuro Start: 09/06/23 17:16 Freq: Status: Active Protocol: Document 09/07/23 08:15 SAK (Rec: 09/08/23 10:05 [facility] [id number]) Sensation Evaluation Gross Sensation Gross Sensation WNL PT-OP-J Posture/Palpation/Skin Start: 09/06/23 17:16 Freq: Status: Active Protocol: Document 09/07/23 08:15 SAK (Rec: 09/08/23 10:05 [facility] [id number]) Posture Evaluation Position Sitting Head/C-Spine Posture Forward Head T-Spine Posture Increased Kyphosis Shoulder Posture (L) Rounded,(R) Rounded Scapula Posture (R) Protracted Arm Posture (L) Internally Rotated,(R) Internally Rotated Palpation Assessment Location right upper trap Palpation Findings Soft Tissue Tightness, Tenderness RC insertion Palpation Details mild tenderness deltoid Palpation Location right Palpation Findings Soft Tissue Tightness, Tenderness Palpation Details tenderness at insertion PT-OP-K Range of Motion Start: 09/06/23 17:16 Freq: Status: Active Protocol: Document 09/07/23 08:15 SAK (Rec: 09/07/23 09:01 [facility] [id number]) Shoulder Goniometric Range of Motion Shoulder Right Active Flexion 155 Extension 25 Abduction 155 Horizontal Abduction 80 Horizontal Adduction 25 External Rotation at 45 degrees 65 Abduction Internal Rotation Behind Back (text) L2 Left Active Shoulder ROM WFL Yes Internal Rotation Behind Back (text) T2 Shoulder ROM Limitations Shoulder ROM Limitations Soft Tissue Tightness,Muscle Weakness,Pain Elbow/Forearm Range of Motion Elbow/Forearm tee Elbow/Forearm ROM WFL Yes PT-OP-L Special Tests Start: 09/06/23 17:16 Freq: Status: Active Protocol: Document 09/07/23 08:15 SAK (Rec: 09/08/23 10:05 [facility] [id number]) Special Tests Shoulder Special Tests Elevation Impingement Test Results + drop arm Test Results - PT-OP-M Strength Start: 09/06/23 17:16 Freq: Status: Active Protocol: Document 09/07/23 08:15 SAK (Rec: 09/08/23 10:05 [facility] [id number]) Shoulder Strength Shoulder Manual Muscle Testing Right Flexion 4 Good Extension 4 Good Abduction (C5) 4 Good External Rotation 4 Good Internal Rotation 4 Good Horizontal Abduction 4- Good- Horizontal Adduction 4 Good Left Flexion 5 Normal Extension 5 Normal Abduction (C5) 5 Normal External Rotation 4+ Good+ Internal Rotation 4+ Good+ Horizontal Abduction 4+ Good+ Horizontal Adduction 4+ Good+ Elbow/Forearm Strength Elbow and Forearm Manual Muscle Testing tee Flexion (C6) 5 Normal Extension (C7) 5 Normal PT-OP-Q Treatments Start: 09/06/23 17:16 Freq: Status: Active Protocol: Document 09/09/23 08:12 [facility] (Rec: 09/09/23 09:02 [facility] [id number]) Therapeutic Exercises Supine Exercises flex Equipment Used wand Reps/Minutes 10x Shoulder ER Supine Exercise Name AROM Reps/Minutes 10x2 shoulder IR Supine Exercise Name AROM Equipment Used towel roll as target for hand Reps/Minutes 10x2 Comments patient holding shoulder down, focus on rotation Sidelying Exercises open book Reps/Minutes 5x ea Sitting Exercises pulleys Sitting Exercise Name flex and scapiton Reps/Minutes 10x Comments end-range stretvh with deep breath Standing Exercises throw Equipment Used 2# ball Comments motion only, then throw in rebounder shoulder ER Standing Exercise Name 60 deg shoulder, 90 deg elbow supported. wall posture Reps/Minutes 5x Manual Therapy Treatment Soft Tissue Mobilization deltoid Intensity/Depth med Body Position Supine Comments insertion Joint Mobilizations GH Joint right Direction inf,post Body Position Supine Self-Care/Home Management Treatment Education Patient Education Home Exercise Program,Joint Protection,Posture PT-OP-R Modalities Start: 09/06/23 17:16 Freq: Status: Active Protocol: Document 09/09/23 08:12 [facility] (Rec: 09/09/23 09:02 [facility] [id number]) Hot Pack/Cold Pack Treatment Hot Pack Location right deltoid Patient Position Supine Comments after STM PT-OP-T Assessment and Plan Start: 09/06/23 17:16 Freq: Status: Active Protocol: Document 09/09/23 08:12 [facility] (Rec: 09/09/23 09:02 [facility] [id number]) Physical Therapy Assessment Goals Three Impairment weakness and lack of full ROM right shoulder Impairment limits ability to reach overhead and behind back Short Term Goal (STG) patient to be instructed in HEP for ROM and strengthening right shoulder STG Duration 10/06/23 [employer] Goal (LTG) Patient to be independnet and compliant with HEP and demonstrate improvement in ROM to WNL allowing her to reach fully overhead and behind her back without pinching pain in right shoulder LTG Duration 11/06/23 One Impairment Quickdash disability index score Impairment 27% Short Term Goal (STG) Decrease Quickdash score to no greater than 17% as measure of improved right shoulder function STG Duration 10/06/23 Retail Route Supervisor Goal (LTG) Decrease Quickdash score to no greater than 7% as measure of improved right shoulder function Two Impairment pain right shoulder Impairment pain as high as 7/10 especially with reaching overhead and behind her back Short Term Goal (STG) Decrease pain by at least 50% with all usual activities STG Duration 10/06/23 [employer] Route Supervisor Goal (LTG) Decrease pain by at least 75% as with all usual activities LTG Duration 10/22/23 Physical Therapy Plan Frequency and Duration Frequency of Treatment 2x/Week Duration of treatment (weeks) 8 Plan of Care Start Date 09/07/23 Plan of Care End Date 11/06/23 Therapeutic Interventions Therapeutic Interventions Home Exercise Program,Joint Mobilizations,Manual Therapy, Patient/Caregiver Education, Self-Care/Home Management,Soft Tissue Mobilization,Taping, Therapeutic Activities, Therapeutic Exercises Modalities Cold Pack/Ice Massage,Electric Stimulation,Hot Packs, Iontophoresis,Ultrasound Next Visit Focus/Plan Next Note Type Treatment Note
--- NOTE | 2023-09-14 10:37 | PT.OTN ---
Current Diagnoses Pain in right shoulder (09/14/23) Adhesive capsulitis of right shoulder (09/14/23) Physical Therapy Treatment Note PT-OP-A Visit Information Start: 09/06/23 17:16 Freq: Status: Active Protocol: Document 09/14/23 08:05 AB (Rec: 09/14/23 10:37 AB [id number]) Out-Patient Physical Therapy Visit Information Visit Information Visit Type Treatment Note Visit Note Access Code: [email or web address] Visit Start Time 08:19 Visit Stop Time 08:58 Visit Number 3 Number of LACE PINNER Visits 1 Evaluation Information Evaluation Date 09/07/23 PT-OP-B Current Condition Start: 09/06/23 17:16 Freq: Status: Active Protocol: Document 09/09/23 08:12 SAK (Rec: 09/09/23 09:02 SAK [id number]) Current Condition History of Current Condition Onset Date April 2023 Current Complaints right shoulder pain and limited function History of Current Condition History right shoulder pain and dysfunction with history 2 cortisone shots; first 2 years ago, second around with good relief until they wear off. Also has popping sensation in shoulder which persists despite decrease in pain. When pain bad can't reach overhead, reach, sleep. Now reports 90% better but continues to pop and is concerned about what happens when shot wears off again. Denies numbness or tingling. Is right handed. No history of trauma. Prior Treatments and Tests cortisone shot right shoulder around 2022. Prior cortisone shot as well. x-rays Treatment Goals Patient/Caregiver Goals decrease pain and return to prior level of function PT-OP-C Subjective Start: 09/06/23 17:16 Freq: Status: Active Protocol: Document 09/14/23 08:05 AB (Rec: 09/14/23 10:37 AB [id number]) OP-PT Subjective Patient Comments Patient Comments Patient reports the flexibility ( ROM ) is continuing to improve. PT-OP-F Manual Assessment Start: 09/06/23 17:16 Freq: Status: Active Protocol: Document 09/07/23 08:15 SAK (Rec: 09/08/23 10:05 SAK [id number]) Manual Assessments Joint Mobility Assessment Joint Mobility Assessment decreased posterior and inferior glide GH joint right PT-OP-H Neuro Start: 09/06/23 17:16 Freq: Status: Active Protocol: Document 09/07/23 08:15 SAK (Rec: 09/08/23 10:05 [facility] [id number]) Sensation Evaluation Gross Sensation Gross Sensation WNL PT-OP-J Posture/Palpation/Skin Start: 09/06/23 17:16 Freq: Status: Active Protocol: Document 09/07/23 08:15 SAK (Rec: 09/08/23 10:05 [facility] [id number]) Posture Evaluation Position Sitting Head/C-Spine Posture Forward Head T-Spine Posture Increased Kyphosis Shoulder Posture (L) Rounded,(R) Rounded Scapula Posture (R) Protracted Arm Posture (L) Internally Rotated,(R) Internally Rotated Palpation Assessment Location right upper trap Palpation Findings Soft Tissue Tightness, Tenderness RC insertion Palpation Details mild tenderness deltoid Palpation Location right Palpation Findings Soft Tissue Tightness, Tenderness Palpation Details tenderness at insertion PT-OP-K Range of Motion Start: 09/06/23 17:16 Freq: Status: Active Protocol: Document 09/07/23 08:15 SAK (Rec: 09/07/23 09:01 [facility] [id number]) Shoulder Goniometric Range of Motion Shoulder Right Active Flexion 155 Extension 25 Abduction 155 Horizontal Abduction 80 Horizontal Adduction 25 External Rotation at 45 degrees 65 Abduction Internal Rotation Behind Back (text) L2 Left Active Shoulder ROM WFL Yes Internal Rotation Behind Back (text) T2 Shoulder ROM Limitations Shoulder ROM Limitations Soft Tissue Tightness,Muscle Weakness,Pain Elbow/Forearm Range of Motion Elbow/Forearm tee Elbow/Forearm ROM WFL Yes PT-OP-L Special Tests Start: 09/06/23 17:16 Freq: Status: Active Protocol: Document 09/07/23 08:15 SAK (Rec: 09/08/23 10:05 [facility] [id number]) Special Tests Shoulder Special Tests Elevation Impingement Test Results + drop arm Test Results - PT-OP-M Strength Start: 09/06/23 17:16 Freq: Status: Active Protocol: Document 09/07/23 08:15 SAK (Rec: 09/08/23 10:05 [facility] [id number]) Shoulder Strength Shoulder Manual Muscle Testing Right Flexion 4 Good Extension 4 Good Abduction (C5) 4 Good External Rotation 4 Good Internal Rotation 4 Good Horizontal Abduction 4- Good- Horizontal Adduction 4 Good Left Flexion 5 Normal Extension 5 Normal Abduction (C5) 5 Normal External Rotation 4+ Good+ Internal Rotation 4+ Good+ Horizontal Abduction 4+ Good+ Horizontal Adduction 4+ Good+ Elbow/Forearm Strength Elbow and Forearm Manual Muscle Testing tee Flexion (C6) 5 Normal Extension (C7) 5 Normal PT-OP-Q Treatments Start: 09/06/23 17:16 Freq: Status: Active Protocol: Document 09/14/23 08:05 AB (Rec: 09/14/23 10:37 AB [id number]) Therapeutic Exercises Supine Exercises alternating sh flexion on soft foam roller Side bilateral Reps/Minutes X10 Comments Verbal cues for alternating UE flexion pec stretch on soft foam roller Side bilateral Equipment Used soft foam roller Reps/Minutes 3 min Comments Verbal and tactile cues for breathing from diaphragm shoulder IR Supine Exercise Name AROM Reps/Minutes X10 Comments Pt ed use of self tactile cues for avoiding ant translation of humerus Sidelying Exercises sidelying shoulder ER Sidelying Exercise Name AROM Side right Reps/Minutes X10 Comments monitored for pain open book Reps/Minutes X10 each UE Comments Verbal cues Standing Exercises Row Side bilateral Resistance level one light blue band Reps/Minutes 2X10 Comments Verbal cues, monitored for pain Mini band Standing Exercise Name shoulder ER with band with flexion Side bilateral Resistance level one light blue band SINGLE thickness Equipment Used band Reps/Minutes X10 Comments Verbal and visual cues, monitored for pain Manual Therapy Treatment Soft Tissue Mobilization right pec, post cuff, UT/levator scap Mobilization Type Cross-Friction,Rolling Intensity/Depth Moderate Body Position Sidelying Comments and hooklying monitored for pain Joint Mobilizations scapular Joint right scapula Direction into adduction and depression Grade III Body Position Sidelying Reps/Duration X5 X 5 each direction Comments monitored for pain GH Joint right Direction inf,post Grade IV Body Position Supine Manual Techniques PROM right shoulder ER Type manual PROM Body Location right shoulder Body Position Hooklying Reps/Duration 5 Comments Monitored for pain keely Self-Care/Home Management Treatment Education Other Education IR AROM avoiding ant translation of humerus, pec stretch and alt UE flexion on foam roller, rows, mini band ( shoulder er with band with flexion ) added to HEP PT-OP-R Modalities Start: 09/06/23 17:16 Freq: Status: Active Protocol: Document 09/09/23 08:12 SAK (Rec: 09/09/23 09:02 SAK [id number]) Hot Pack/Cold Pack Treatment Hot Pack Location right deltoid Patient Position Supine Comments after STM PT-OP-T Assessment and Plan Start: 09/06/23 17:16 Freq: Status: Active Protocol: Document 09/14/23 08:05 AB (Rec: 09/14/23 10:37 AB [id number]) Physical Therapy Assessment Goals Three Impairment weakness and lack of full ROM right shoulder Impairment limits ability to reach overhead and behind back Short Term Goal (STG) patient to be instructed in HEP for ROM and strengthening right shoulder STG Duration 10/06/23 Launch Steward Goal (LTG) Patient to be independnet and compliant with HEP and demonstrate improvement in ROM to WNL allowing her to reach fully overhead and behind her back without pinching pain in right shoulder LTG Duration 11/06/23 One Impairment Quickdash disability index score Impairment 27% Short Term Goal (STG) Decrease Quickdash score to no greater than 17% as measure of improved right shoulder function STG Duration 10/06/23 Launch Steward Goal (LTG) Decrease Quickdash score to no greater than 7% as measure of improved right shoulder function Two Impairment pain right shoulder Impairment pain as high as 7/10 especially with reaching overhead and behind her back Short Term Goal (STG) Decrease pain by at least 50% with all usual activities STG Duration 10/06/23 Launch Steward Goal (LTG) Decrease pain by at least 75% as with all usual activities LTG Duration 10/22/23 Assessment Summary Assessment Jasmin reports feeling better end of session. AROM right shoulder flexion 146 deg post manual therapy and exercise. Patient is not yet able to reach fully overhead and would benefit from cont PT. Physical Therapy Plan Frequency and Duration Frequency of Treatment 2x/Week Duration of treatment (weeks) 8 Plan of Care Start Date 09/07/23 Plan of Care End Date 11/06/23 Next Visit Focus/Plan Next Note Type Treatment Note Next Visit Plan possibly high row to HEP, wall slide with lift off and lower without use of wall.
--- NOTE | 2023-09-16 12:54 | PT.OTN ---
Current Diagnoses Pain in right shoulder (09/16/23) Adhesive capsulitis of right shoulder (09/16/23) Physical Therapy Treatment Note PT-OP-A Visit Information Start: 09/06/23 17:16 Freq: Status: Active Protocol: Document 09/16/23 08:13 AB (Rec: 09/16/23 09:01 AB [id number]) Out-Patient Physical Therapy Visit Information Visit Information Visit Type Treatment Note Visit Note Access Code: [email or web address] Visit Start Time 08:16 Visit Stop Time 08:57 Visit Number 4 Number of RUNNER WORKER Visits 2 Evaluation Information Evaluation Date 09/07/23 PT-OP-B Current Condition Start: 09/06/23 17:16 Freq: Status: Active Protocol: Document 09/09/23 08:12 SAK (Rec: 09/09/23 09:02 SAK [id number]) Current Condition History of Current Condition Onset Date April 2023 Current Complaints right shoulder pain and limited function History of Current Condition History right shoulder pain and dysfunction with history 2 cortisone shots; first 2 years ago, second around with good relief until they wear off. Also has popping sensation in shoulder which persists despite decrease in pain. When pain bad can't reach overhead, reach, sleep. Now reports 90% better but continues to pop and is concerned about what happens when shot wears off again. Denies numbness or tingling. Is right handed. No history of trauma. Prior Treatments and Tests cortisone shot right shoulder around 2022. Prior cortisone shot as well. x-rays Treatment Goals Patient/Caregiver Goals decrease pain and return to prior level of function PT-OP-C Subjective Start: 09/06/23 17:16 Freq: Status: Active Protocol: Document 09/16/23 08:13 AB (Rec: 09/16/23 09:01 AB [id number]) OP-PT Subjective Patient Comments Patient Comments Jasmin the ROM is getting better, but the arm is a little achy today. AROM right shoulder flexion 123 deg start of session. PT-OP-F Manual Assessment Start: 09/06/23 17:16 Freq: Status: Active Protocol: Document 09/07/23 08:15 SAK (Rec: 09/08/23 10:05 SAK [id number]) Manual Assessments Joint Mobility Assessment Joint Mobility Assessment decreased posterior and inferior glide GH joint right PT-OP-H Neuro Start: 09/06/23 17:16 Freq: Status: Active Protocol: Document 09/07/23 08:15 SAK (Rec: 09/08/23 10:05 [facility] [id number]) Sensation Evaluation Gross Sensation Gross Sensation WNL PT-OP-J Posture/Palpation/Skin Start: 09/06/23 17:16 Freq: Status: Active Protocol: Document 09/07/23 08:15 SAK (Rec: 09/08/23 10:05 [facility] [id number]) Posture Evaluation Position Sitting Head/C-Spine Posture Forward Head T-Spine Posture Increased Kyphosis Shoulder Posture (L) Rounded,(R) Rounded Scapula Posture (R) Protracted Arm Posture (L) Internally Rotated,(R) Internally Rotated Palpation Assessment Location right upper trap Palpation Findings Soft Tissue Tightness, Tenderness RC insertion Palpation Details mild tenderness deltoid Palpation Location right Palpation Findings Soft Tissue Tightness, Tenderness Palpation Details tenderness at insertion PT-OP-K Range of Motion Start: 09/06/23 17:16 Freq: Status: Active Protocol: Document 09/07/23 08:15 SAK (Rec: 09/07/23 09:01 [facility] [id number]) Shoulder Goniometric Range of Motion Shoulder Right Active Flexion 155 Extension 25 Abduction 155 Horizontal Abduction 80 Horizontal Adduction 25 External Rotation at 45 degrees 65 Abduction Internal Rotation Behind Back (text) L2 Left Active Shoulder ROM WFL Yes Internal Rotation Behind Back (text) T2 Shoulder ROM Limitations Shoulder ROM Limitations Soft Tissue Tightness,Muscle Weakness,Pain Elbow/Forearm Range of Motion Elbow/Forearm tee Elbow/Forearm ROM WFL Yes PT-OP-L Special Tests Start: 09/06/23 17:16 Freq: Status: Active Protocol: Document 09/07/23 08:15 SAK (Rec: 09/08/23 10:05 [facility] [id number]) Special Tests Shoulder Special Tests Elevation Impingement Test Results + drop arm Test Results - PT-OP-M Strength Start: 09/06/23 17:16 Freq: Status: Active Protocol: Document 09/07/23 08:15 SAK (Rec: 09/08/23 10:05 [facility] [id number]) Shoulder Strength Shoulder Manual Muscle Testing Right Flexion 4 Good Extension 4 Good Abduction (C5) 4 Good External Rotation 4 Good Internal Rotation 4 Good Horizontal Abduction 4- Good- Horizontal Adduction 4 Good Left Flexion 5 Normal Extension 5 Normal Abduction (C5) 5 Normal External Rotation 4+ Good+ Internal Rotation 4+ Good+ Horizontal Abduction 4+ Good+ Horizontal Adduction 4+ Good+ Elbow/Forearm Strength Elbow and Forearm Manual Muscle Testing tee Flexion (C6) 5 Normal Extension (C7) 5 Normal PT-OP-Q Treatments Start: 09/06/23 17:16 Freq: Status: Active Protocol: Document 09/16/23 08:13 AB (Rec: 09/16/23 09:01 AB [id number]) Therapeutic Exercises Supine Exercises alternating sh flexion on soft foam roller Side bilateral Reps/Minutes X10 Comments Verbal cues for alternating UE flexion pec stretch on soft foam roller Side bilateral Equipment Used soft foam roller Reps/Minutes 3 min Comments Verbal and tactile cues for breathing from diaphragm Sidelying Exercises sidelying shoulder Abduction Side right Reps/Minutes X10 Comments VC for thumb up sidelying shoulder ER Sidelying Exercise Name AROM Side right Reps/Minutes X10 Comments prior to sidelying shoulder abduction open book Reps/Minutes X5 each UE Comments Verbal cues to hold for 5 breaths Standing Exercises high row Side bilateral Resistance peach band level one Reps/Minutes 2X10 Comments Verbal and visual cues Row Side bilateral Resistance level one light blue band Reps/Minutes 2X10 Comments Verbal cues, monitored for pain Mini band Standing Exercise Name shoulder ER with band with flexion Side bilateral Resistance level one light blue band SINGLE thickness Equipment Used band Reps/Minutes X10 Comments initiated standing then to supine with reports less pain in supine Other Exercises wall push up plus Comments verbal and tactile cues statue of [place] Other Exercise Name modified to UE at side Resistance Yellow therabar Reps/Minutes 30 sec Comments verbal and visual cues wall slide flexion Other Exercise Name stepping to wall, slide, then UE off wall and lower without use of wall Side right Reps/Minutes X10 Comments Verbal and visual cues Manual Therapy Treatment Soft Tissue Mobilization right pec, post cuff, UT/levator scap Mobilization Type Cross-Friction,Rolling Intensity/Depth Moderate Body Position Sidelying Comments and hooklying monitored for pain Joint Mobilizations scapular Joint right scapula Direction into adduction and depression Grade III Body Position Sidelying Reps/Duration X5 X 5 each direction Comments monitored for pain GH Joint right Direction inf,post Grade IV Body Position Supine Manual Techniques PROM right shoulder ER Type manual PROM Body Location right shoulder Body Position Hooklying Reps/Duration 5 Comments Monitored for pain keely Self-Care/Home Management Treatment Activities Self-Care/Home Management Activities Added high row and wall slide flexion to HEP PT-OP-R Modalities Start: 09/06/23 17:16 Freq: Status: Active Protocol: Document 09/09/23 08:12 SAK (Rec: 09/09/23 09:02 SAK [id number]) Hot Pack/Cold Pack Treatment Hot Pack Location right deltoid Patient Position Supine Comments after STM PT-OP-T Assessment and Plan Start: 09/06/23 17:16 Freq: Status: Active Protocol: Document 09/16/23 08:13 AB (Rec: 09/16/23 09:01 AB [id number]) Physical Therapy Assessment Goals Three Impairment weakness and lack of full ROM right shoulder Impairment limits ability to reach overhead and behind back Short Term Goal (STG) patient to be instructed in HEP for ROM and strengthening right shoulder STG Duration 10/06/23 Retirement Goal (LTG) Patient to be independnet and compliant with HEP and demonstrate improvement in ROM to WNL allowing her to reach fully overhead and behind her back without pinching pain in right shoulder LTG Duration 11/06/23 One Impairment Quickdash disability index score Impairment 27% Short Term Goal (STG) Decrease Quickdash score to no greater than 17% as measure of improved right shoulder function STG Duration 10/06/23 Lathe Mechanic Goal (LTG) Decrease Quickdash score to no greater than 7% as measure of improved right shoulder function Two Impairment pain right shoulder Impairment pain as high as 7/10 especially with reaching overhead and behind her back Short Term Goal (STG) Decrease pain by at least 50% with all usual activities STG Duration 10/06/23 Retirement Goal (LTG) Decrease pain by at least 75% as with all usual activities LTG Duration 10/22/23 Assessment Summary Assessment AROM 140 deg end of session right shoulder flexion increased from 126 deg start of session, but decreased from end of previous session, likely due to fatigue with wall slides and modified statue of nora performed this session. Physical Therapy Plan Frequency and Duration Frequency of Treatment 2x/Week Duration of treatment (weeks) 8 Plan of Care Start Date 09/07/23 Plan of Care End Date 11/06/23 Next Visit Focus/Plan Next Visit Plan level 2 band for scapular strengthening, add push up plus to HEP.
--- NOTE | 2023-10-14 10:01 | PT-OP ANOTE ---
LVM to check in with patient and see if she wanted to schedule any further appointments or if ready for discharge.
--- NOTE | 2023-10-19 09:03 | PT.OPDS ---
Current Diagnoses Pain in right shoulder (09/16/23) Adhesive capsulitis of right shoulder (09/16/23) Visit Care Team Role Provider Type Raji Gordillo DO Attending Provider Physician Family Provider Primary Care Provider Referring Provider Specialty: Family Practice Address: [address] [place] [address], [facility] Email: [email or web address] Visit Number Visit Number 4 Discharge Summary PT-OP-B Current Condition Start: 09/06/23 17:16 Freq: Status: Active Protocol: Document 09/09/23 08:12 SAK (Rec: 09/09/23 09:02 SAK [id number]) Current Condition History of Current Condition Onset Date April 2023 Current Complaints right shoulder pain and limited function History of Current Condition History right shoulder pain and dysfunction with history 2 cortisone shots; first 2 years ago, second around with good relief until they wear off. Also has popping sensation in shoulder which persists despite decrease in pain. When pain bad can't reach overhead, reach, sleep. Now reports 90% better but continues to pop and is concerned about what happens when shot wears off again. Denies numbness or tingling. Is right handed. No history of trauma. Prior Treatments and Tests cortisone shot right shoulder around 2022. Prior cortisone shot as well. x-rays Treatment Goals Patient/Caregiver Goals decrease pain and return to prior level of function PT-OP-C Subjective Start: 09/06/23 17:16 Freq: Status: Active Protocol: Document 09/16/23 08:13 AB (Rec: 09/16/23 09:01 AB [id number]) OP-PT Subjective Patient Comments Patient Comments Jasmin the ROM is getting better, but the arm is a little achy today. AROM right shoulder flexion 123 deg start of session. PT-OP-F Manual Assessment Start: 09/06/23 17:16 Freq: Status: Active Protocol: Document 09/07/23 08:15 SAK (Rec: 09/08/23 10:05 SAK [id number]) Manual Assessments Joint Mobility Assessment Joint Mobility Assessment decreased posterior and inferior glide GH joint right PT-OP-H Neuro Start: 09/06/23 17:16 Freq: Status: Active Protocol: Document 09/07/23 08:15 SAK (Rec: 09/08/23 10:05 SAK [id number]) Sensation Evaluation Gross Sensation Gross Sensation WNL PT-OP-J Posture/Palpation/Skin Start: 09/06/23 17:16 Freq: Status: Active Protocol: Document 09/07/23 08:15 SAK (Rec: 09/08/23 10:05 SAK [id number]) Posture Evaluation Position Sitting Head/C-Spine Posture Forward Head T-Spine Posture Increased Kyphosis Shoulder Posture (L) Rounded,(R) Rounded Scapula Posture (R) Protracted Arm Posture (L) Internally Rotated,(R) Internally Rotated Palpation Assessment Location right upper trap Palpation Findings Soft Tissue Tightness, Tenderness RC insertion Palpation Details mild tenderness deltoid Palpation Location right Palpation Findings Soft Tissue Tightness, Tenderness Palpation Details tenderness at insertion PT-OP-K Range of Motion Start: 09/06/23 17:16 Freq: Status: Active Protocol: Document 09/07/23 08:15 SAK (Rec: 09/07/23 09:01 SAK [id number]) Shoulder Goniometric Range of Motion Shoulder Right Active Flexion 155 Extension 25 Abduction 155 Horizontal Abduction 80 Horizontal Adduction 25 External Rotation at 45 degrees 65 Abduction Internal Rotation Behind Back (text) L2 Left Active Shoulder ROM WFL Yes Internal Rotation Behind Back (text) T2 Shoulder ROM Limitations Shoulder ROM Limitations Soft Tissue Tightness,Muscle Weakness,Pain Elbow/Forearm Range of Motion Elbow/Forearm tee Elbow/Forearm ROM WFL Yes PT-OP-L Special Tests Start: 09/06/23 17:16 Freq: Status: Active Protocol: Document 09/07/23 08:15 SAK (Rec: 09/08/23 10:05 [facility] [id number]) Special Tests Shoulder Special Tests Elevation Impingement Test Results + drop arm Test Results - PT-OP-M Strength Start: 09/06/23 17:16 Freq: Status: Active Protocol: Document 09/07/23 08:15 SAK (Rec: 09/08/23 10:05 SAK [id number]) Shoulder Strength Shoulder Manual Muscle Testing Right Flexion 4 Good Extension 4 Good Abduction (C5) 4 Good External Rotation 4 Good Internal Rotation 4 Good Horizontal Abduction 4- Good- Horizontal Adduction 4 Good Left Flexion 5 Normal Extension 5 Normal Abduction (C5) 5 Normal External Rotation 4+ Good+ Internal Rotation 4+ Good+ Horizontal Abduction 4+ Good+ Horizontal Adduction 4+ Good+ Elbow/Forearm Strength Elbow and Forearm Manual Muscle Testing tee Flexion (C6) 5 Normal Extension (C7) 5 Normal PT-OP-T Assessment and Plan Start: 09/06/23 17:16 Freq: Status: Active Protocol: Document 10/19/23 09:03 [facility] (Rec: 10/19/23 09:03 [facility] [id number]) Physical Therapy Plan Discharge Physical Therapy Discharge Reasons No Longer Attending PT
== END 2023-10-21 08:13 | disposition home or self-care (01) ==
LOC: PHYS 08:15
PROVIDERS: Family Provider Family Medicine; PCP Family Medicine; Referring Provider Family Medicine; Visit Provider Family Medicine
DX: M25.511 Pain in right shoulder (principal); M75.01 Adhesive capsulitis of right shoulder
CPT/HCPCS: 97110; 97140; 97161; 97535

== ENCOUNTER → 2024-02-11 07:42 | Outpatient (CLI) | payer OTHER, SELFPAY ==
--- NOTE | 2024-02-11 07:43 | DI.MG.S_ITS ---
BILATERAL DIGITAL SCREENING MAMMOGRAM 3D/2D WITH CAD WITH AUGMENTATION: 02/11/2024 CLINICAL: Routine screening. Comparison is made to exams dated: 01/01/2022 mammogram, 01/02/2023 mammogram, and 12/30/2020 mammogram - [facility]. Both breasts are heterogeneously dense, which may obscure small masses (category c / 51-75% glandular tissue). Current study was also evaluated with a Computer Aided Detection (CAD) system. Bilateral breast implants are stable. No significant masses, calcifications, or other findings are seen in either breast. There has been no significant interval change. IMPRESSION: NEGATIVE There is no mammographic evidence of malignancy. A 1 year screening mammogram is recommended. Based on the Tyrer Cuzick model (a risk assessment model) the patient's lifetime risk is 10.9% and her 10 year risk is 4.4%. According to the ACR, ACS, and NCCN guidelines, an annual breast MRI exam along with mammogram is recommended if the patient's lifetime risk is 20% or greater. This exam was interpreted at Station ID: [id number]. NOTE: For mammograms, a report in lay terms will be sent to the patient. Approximately 15% of breast malignancies will not be visualized mammographically. In the management of a palpable breast mass, a negative mammogram must not discourage biopsy of a clinically suspicious lesion. Electronically Signed By: Manuel cunha/saranya:02/11/2024 17:30:31 letter sent: Normal Exam ACR BI-RADS Category 1: Negative [id number]
== END ==
LOC: MAMMO 07:42
PROVIDERS: Family Provider Family Medicine; PCP Family Medicine; Referring Provider Family Medicine; Visit Provider Family Medicine
DX: Z12.31 Encounter for screening mammogram for malignant neoplasm of breast (principal); R92.333 Mammographic heterogeneous density, bilateral breasts
CPT/HCPCS: 77063; 77067

== ENCOUNTER → 2024-07-21 07:13 | Outpatient (CLI) | payer BC, SELFPAY ==
[2024-07-21 08:15] LABS: Add Manual Diff / Slide Review NO; Basophils Absolute Auto 100 /uL (0-100); Basophils Percent Auto 1.8 % (0-2); Eosinophils Absolute Auto 100 /uL (0-450); Eosinophils Percent Auto 1.2 % (2-4); Hematocrit 44.6 % (36-46); Hemoglobin 15.3 g/dL (12.0-16.0); Lymphocytes Absolute Auto 1500 /uL (1100-4500); Lymphocytes Percent Auto 31.9 % (25-40); Mean Corpuscular HGB Conc 34.3 % (30-36); Mean Corpuscular Volume 90.4 fL (80-100); Monocytes Absolute Auto 300 /uL (0-900); Monocytes Percent Auto 7.3 % (3-14); Neutrophils Absolute Auto 2700 /uL (1500-7000); Neutrophils Percent Auto 57.8 % (50-75); Platelet Count 257 X10^3/uL (150-400); Red Blood Cell Count 4.94 X10^6/uL (4.0-5.2); Red Cell Distribution Width 12.9 % (11.6-14.8); White Blood Cell Count 4.6 X10^3/uL (4.5-11.0)
[2024-07-21 08:52] LABS: Alanine Aminotransferase 25 IU/L (<35); Albumin 4.8 g/dL (3.5-5.0); Albumin Globulin Ratio 2.1 (1.0-2.8); Alkaline Phosphatase 61 U/L (38-126); Aspartate Aminotransferase 26 IU/L (14-36); BUN Creatinine Ratio 17.9 (6-22); Bilirubin Total 0.9 mg/dL (0.2-1.3); Blood Urea Nitrogen 20 mg/dL (7-17); Calcium 9.3 mg/dL (8.4-10.2); Carbon Dioxide 25 mmol/L (22-32); Chloride 105 mmol/L (98-107); Cholesterol 206 mg/dL (140-199); Estimated Glomerular Filt Rate 56 mL/min (>60); Globulin 2.3 g/dL (1.7-4.1); Glucose 74 mg/dL (80-110); HDL Cholesterol 80 mg/dL (40-60); HEMOLYSIS < 15 (0-50); LDL Cholesterol Calculated 113 mg/dL (<100); Potassium 4.2 mmol/L (3.4-5.1); Sodium 139 mmol/L (137-145); Total Protein 7.1 g/dL (6.3-8.2); Triglycerides 67 mg/dL (35-150)
[2024-07-21 09:20] LABS: TSH w/ Reflex to FT4 1.37 uIU/mL (0.47-4.68)
== END ==
PROVIDERS: Family Provider Family Medicine; PCP Family Medicine; Referring Provider Family Medicine; Visit Provider Family Medicine
DX: Z00.00 Encounter for general adult medical examination without abnormal findings (principal); E78.5 Hyperlipidemia, unspecified
CPT/HCPCS: 36415; 80053; 80061; 84443; 85025